=== PATIENT | female | born 1975 | race African-American/Black ===

== ENCOUNTER 2019-09-02 15:45 | Emergency (ER) | payer OTHER ==
--- NOTE | 2019-09-03 07:23 | EKG REPORT ---
SEVERITY:- BORDERLINE ECG - SINUS RHYTHM PROBABLE LEFT ATRIAL ABNORMALITY BORDERLINE R WAVE PROGRESSION, ANTERIOR LEADS : Confirmed by: Star Saez 03-Sep-2019 07:22:30
== END 2019-09-02 17:05 | disposition left against medical advice (07) ==
LOC: ER 15:45
DX: Z53.21 Procedure and treatment not carried out due to patient leaving prior to being seen by health care provider (principal)

== ENCOUNTER 2020-08-17 15:05 | Emergency (ER) | payer BC, OTHER ==
[2020-08-17] MEDS ORDERED: RINGERS SOLUTION,LACTATED 1,000 ML IV ONE (15:20)
--- NOTE | 2020-08-17 15:36 | ER Document Report ---
Entered by CLAUDIA BENDER SCRIBE 08/17/20 1519 Acting as scribe for:LIONEL WILKERSON DO ED General - General Stated Complaint: DIZZINESS, VOMITING Time Seen by Provider: 08/17/20 15:09 Primary Care Provider: ALEC COCHRAN MD [EMERITUS] - Follow up as needed Information source: Patient Notes: This 45 year old female patient presents to the emergency department today with complaints of dizziness. 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 Patient reports continued dizziness and weakness after this episode and denies chest pain or shortness of breath. Denies symptoms the past week includ ing any fever, chills, cough, or urinary symptoms. Patient states she was tested for covid x10 days ago only because the test was available, with negative results. Patient reports medical history of Anemia, HTN and is not on medication, only taking milk of magnesia. - Related Data Allergies/Adverse Reactions: No Known Allergies Allergy (Unverified 08/17/20 16:43) Past Medical History - General Information source: Patient - Social History Smoking Status: Never Smoker Cigarette use (# per day): No Lives with: Family Family History: DM, Hyperlipidemia, Hypertension - Past Medical History Cardiac Medical History: Reports: Hx Hypertension Neurological Medical History: Reports: Hx Cerebrovascular Accident - with preeclampsia (1995) Past Surgical History: Reports: Hx Appendectomy, Hx Section - x3, Hx Gynecologic Surgery - Uterine Ablation Review of Systems - Review of Systems Constitutional: See HPI, Weakness. denies: Chills, Fever EENT: No symptoms reported Cardiovascular: See HPI, Syncope, Dizziness, Lightheaded. denies: Chest pain Respiratory: See HPI. denies: Cough, Short of breath Gastrointestinal: No symptoms reported Genitourinary: See HPI Female Genitourinary: No symptoms reported Musculoskeletal: No symptoms reported Skin: No symptoms reported Hematologic/Lymphatic: See HPI, Anemia Neurological/Psychological: See HPI -: Yes All other systems reviewed and negative Physical Exam - Vital signs Vitals: Temp 97.3 F 08/17/20 15:06 - General General appearance: Appears well, Alert - HEENT Head: Normocephalic, Atraumatic Eyes: Normal Pupils: PERRL - Respiratory Respiratory status: No respiratory distress Chest status: Nontender Breath sounds: Normal Chest palpation: Normal - Cardiovascular Rhythm: Regular Heart sounds: Normal auscultation Murmur: No - Abdominal Inspection: Normal Distension: No distension Bowel sounds: Normal Tenderness: Nontender - Extremities General upper extremity: Normal inspection. No: Edema Notes: Trace peripheral edema to bilateral lower extremities. - Neurological Neuro grossly intact: Yes Cognition: Normal Orientation: AAOx4 Sveta Coma Scale Eye Opening: Spontaneous Sveta Coma Scale Verbal: Oriented Sveta Coma Scale Motor: Obeys Commands [place] Coma Scale Total: 15 Speech: Normal - Psychological Associated symptoms: Normal affect, Normal mood - Skin Skin Temperature: Warm Skin Moisture: Dry Skin Color: Normal Course - Re-evaluation Re-evalutation: 08/17/20 17:47 MDM 45 year old with syncope/ near syncope while out in the sun fishing. EKG looks reassuring and metabolic workup is reassuring as well. No leg swelling or pain and no chest pain or sob. Sats 100% . Feel she is safe for outpt follow up. Reviewed with pt who expressed understanding. - Vital Signs Vital signs: Temp Pulse Resp BP Pulse Ox 97.3 F 82 15 126/71 H 100 08/17/20 15:06 08/17/20 15:08 08/17/20 16:00 08/17/20 16:00 08/17/20 15:43 - Laboratory Result Diagrams: 08/17/20 15:31 08/17/20 15:31 Laboratory results interpreted by me: 08/17/20 08/17/20 08/17/20 15:31 15:31 15:31 Hgb 9.1 L Hct 28.9 L MCV 69 L MCH 21.6 L MCHC 31.5 L RDW 18.3 H Absolute Neuts (auto) 8.3 H Seg Neutrophils % 79.1 H Chloride 108 H Urine Blood LARGE H - Diagnostic Test Radiology reviewed: Pending - EKG Interpretation by Me EKG shows normal: Sinus rhythm Rate: Normal Rhythm: NSR - NSR NL axis 96 BPM poor r wave progression my interpretation. Discharge - Discharge Clinical Impression: Syncope Qualifiers: Syncope type: unspecified Qualified Code(s): R55 - Syncope and collapse Anemia Qualifiers: Anemia type: unspecified type Qualified Code(s): D64.9 - Anemia, unspecified Condition: Stable Disposition: HOME, SELF-CARE Instructions: Near Syncopal Episode ([facility]), Syncopal Episode ([facility]) Additional Instructions: Rest, plenty of fluids, See your doctor or the referral doctor in follow up. Please return here for chest pain, shortness of breath or other problems or concerns. Your blood count is a bit low. Discuss this and further testing with your doctor. A vitamin with iron taken daily may be helpful regarding this. Referrals: ALEC COCHRAN MD [EMERITUS] - Follow up as needed I personally performed the services described in the documentation, reviewed and edited the documentation which was dictated to the scribe in my presence, and it accurately records my words and actions.
[2020-08-17 15:45] LABS: ABSOLUTE BASOPHILS # (AUTO) 0.1 10^3/uL (0.0-0.2); ABSOLUTE EOSINOPHILS # (AUTO) 0.1 10^3/uL (0.0-0.6); ABSOLUTE LYMPHOCYTES (AUTO) 1.6 10^3/uL (0.5-4.7); ABSOLUTE MONOCYTES (AUTO) 0.4 10^3/uL (0.1-1.4); ABSOLUTE NEUT (AUTO) 8.3 10^3/uL (1.7-8.2); BASOPHILS % (AUTO) 0.7 % (0-2); EOSINOPHILS % (AUTO) 0.9 % (0-6); HEMATOCRIT 28.9 % (36.0-47.0); HEMOGLOBIN 9.1 g/dL (12.0-15.5); LYMPHOCYTES % (AUTO) 15.6 % (13-45); MEAN CORPUSCULAR HEMOGLOBIN 21.6 pg (27.0-33.4); MEAN CORPUSCULAR HGB CONC 31.5 g/dL (32.0-36.0); MEAN CORPUSCULAR VOLUME 69 fl (80-97); MONOCYTES % (AUTO) 3.7 % (3-13); PLATELET COUNT 371 10^3/uL (150-450); RED BLOOD COUNT 4.22 10^6/uL (3.72-5.28); RED CELL DISTRIBUTION WIDTH 18.3 % (11.5-14.0); SEGMENTED NEUTROPHILS % (AUTO) 79.1 % (42-78); TOTAL CELLS COUNTED % (AUTO) 100 %; WHITE BLOOD COUNT 10.5 10^3/uL (4.0-10.5)
[2020-08-17 16:05] LABS: ALBUMIN 4.1 g/dL (3.5-5.0); ALKALINE PHOSPHATASE 76 U/L (38-126); ANION GAP 8 (5-19); ASPARTATE AMINO TRANSFERASE 19 U/L (14-36); BILIRUBIN,DIRECT 0.2 mg/dL (0.0-0.4); BILIRUBIN,TOTAL 0.4 mg/dL (0.2-1.3); BLOOD UREA NITROGEN 15 mg/dL (7-20); CALCIUM 9.6 mg/dL (8.4-10.2); CARBON DIOXIDE 24 mmol/L (22-30); CHLORIDE 108 mmol/L (98-107); CREATINE KINASE 74 U/L (30-135); GLUCOSE 99 mg/dL (75-110); POTASSIUM 4.1 mmol/L (3.6-5.0); TOTAL PROTEIN 6.8 g/dL (6.3-8.2)
[2020-08-17 16:14] LABS: APPEARANCE,URINE SLIGHTLY-CLOUDY; BILIRUBIN,URINE NEGATIVE (NEGATIVE); COLOR,URINE YELLOW; GLUCOSE, URINE NEGATIVE (NEGATIVE); KETONES,URINE NEGATIVE (NEGATIVE); LEUKOCYTE ESTERASE,URINE NEGATIVE (NEGATIVE); NITRITE,URINE NEGATIVE (NEGATIVE); PROTEIN,URINE NEGATIVE (NEGATIVE); UROBILINOGEN,URINE NEGATIVE mg/dL (<2.0)
[2020-08-17 16:16] LABS: CREATINE KINASE MB 0.24 ng/mL (<4.55)
[2020-08-17 16:18] LABS: TROPONIN I < 0.012 ng/mL
[2020-08-17] MEDS ORDERED: KETOROLAC TROMETHAMINE INJ/PF 30 MG/1 ML SDV IV ONE (17:33)
[2020-08-17] MEDS ORDERED: MECLIZINE HCL 12.5 MG TABLET PO ONE (17:34)
--- NOTE | 2020-08-17 18:17 | EKG REPORT ---
SEVERITY:- ABNORMAL ECG - SINUS RHYTHM CONSIDER ANTEROSEPTAL INFARCT : Confirmed by: Milton Rodriguez MD 17-Aug-2020 18:16:28
[2020-08-17 18:21] VITALS: BP 125/73
== END 2020-08-17 18:23 | disposition home or self-care (01) ==
LOC: ER 15:05
DX: R55 Syncope and collapse (principal); D64.9 Anemia, unspecified; R42 Dizziness and giddiness; R11.10 Vomiting, unspecified; I10 Essential (primary) hypertension
CPT/HCPCS: 93005; 99284; 96361; 96374; 36415; 82553; 82550; 83735; 85025; 81025; 80053; 81001; 84484; 93010; J3490; J1885; J7120